=== PATIENT | female | born 1975 | race Caucasian/White ===

== ENCOUNTER 2021-12-25 18:55 | Emergency (ER) | payer OTHER, SELFPAY ==
[2021-12-25] VITALS (7 sets, daily range): BP systolic 159–189; BP diastolic 90–109; PULSE 83–115; RESP 16–24; TEMP 36.4; O2SAT 98–100
--- NOTE | ~2021-12-25 | XR_ITS ---
EXAMINATION: XR chest 1V portable Exam Date/Time: 12/25/2021 19:35 CDT HISTORY: chest pain, HX HTN, BLOOD SUGAR 498 IN TRIAGE Comparison: 11/22/13. RESULT: Lines, tubes, and devices: Cholecystectomy clips. Lungs and pleura: Clear. Cardiomediastinal silhouette: Stable. Other: No acute osseous or upper abdominal finding. IMPRESSION: No acute cardiopulmonary process. Reviewed, dictated and finalized at location K.
[2021-12-25 19:08] LABS: Glucose Point of Care 498 mg/dl (65-105)
--- NOTE | 2021-12-25 19:33 | ECG_ITS ---
Measurements Intervals [place] Rate: 104 P: 42 ME: 133 QRS: 32 QRSD: 77 T: 92 QT: 345 QTc: 455 Interpretive Statements SINUS TACHYCARDIA RSR' IN V1 OR V2, PROBABLY NORMAL VARIANT LEFT VENTRICULAR HYPERTROPHY WITH ST-T CHANGE BASELINE ARTIFACT- II, III, AVF, V3-V4 BORDERLINE ECG Electronically Signed On 12-25-2021 20:51:00 CDT by Mendel Ravi D.O.
[2021-12-25 19:34] LABS: Appearance Urine Clear (Clear); Bilirubin Urine Negative (Negative); Blood Urine Negative (Negative); Color Urine Yellow (Yellow); Glucose Urine UA 3+ mg/dL (Negative); Ketones Urine Negative (Negative); Leukocyte Esterase Ur Negative LEU/UL (Negative); Nitrate Urine Negative (Negative); Protein Urine Negative (Negative); Urobilinogen Urine 0.2 mg/dL (<2.0)
--- NOTE | 2021-12-25 19:37 | ED.RECABL ---
HPI - Recheck/Abnormal Lab/Rx General Chief Complaint: Recheck/Abnormal Lab/Rx Stated Complaint: elevated blood sugars non diabetic Time Seen by Provider: 12/25/21 19:25 Source: patient and RN notes reviewed Mode of arrival: ambulatory Limitations: no limitations History of Present Illness HPI narrative: This is a 46 year old female with history of hypertension who presents for evaluation of elevated blood sugar. Patient has been having increased urinary frequency so she went to an urgent care on Saturday for evaluation of possible UTI. Her urine was found to have glucose but no infection, so her blood sugar was checked. It was found to be 573 so she was told to get PCP. Patient does not have PCP and has not seen one for years. She reports 12 pound weight loss, intermittent headache, intermittent blurred vision for 6 months. She also reports constant left chest pressure, nonradiating for 2 days. She reports chronic cough from smoking but she denies shortness of breath. She reports nausea but denies vomiting or diarrhea. She has never been diagnosed for diabetes. she states lisinopril 40 mg daily for uncontrolled blood pressure. She gets her prescription from an online doctor. Related Data Allergies Allergy/AdvReac Type Severity Reaction Status Date / Time diphenhydramine Allergy Unknown Verified 11/21/13 22:31 Review of Systems Review of Systems: All systems reviewed & are unremarkable except as noted in HPI and below Constitutional: Constitutional: Denies chills and Reports fatigue Eyes: Eyes: Reports change in vision ENT: Denies nasal congestion and Denies sore throat Cardiovascular: Cardiovascular: Reports chest pain and Denies radiating jaw, neck or arm pain Respiratory: Respiratory: Denies chest congestion, Reports cough and Denies dyspnea Gastrointestinal: Gastrointestinal: Denies abdominal pain, Denies diarrhea, Reports nausea and Denies vomiting Musculoskeletal: Musculoskeletal: Denies back pain and Denies myalgias Neurologic: Reports headache(s) PMF Past Medical History Medical History (Updated 12/26/21 @ 00:00 by Ewa Gomez) Hypertension Surgical History Surgical History (Updated 12/25/21 @ 19:43 by Janette Blancas MD) H/O hernia repair History of cholecystectomy History of tonsillectomy Social History Social History (Updated 12/25/21 @ 19:43 by Janette Blancas MD) Smoking status: Current every day smoker Exam Narrative: GENERAL: Well-appearing, well-nourished, and in no acute distress. HEAD: Normocephalic, atraumatic EYES: PERRLA and EOMI, conjunctiva clear without discharge EARS: TM's clear bilaterally without erythema or dullness NOSE: Nares clear, no rhinorrhea or epistaxis THROAT:Mucous membranes moist, Oropharynx normal without erythema, exudate, peritonsillar swelling or fluctuance NECK: Supple, without lymphadenopathy or mass RESPIRATORY: No respiratory distress, Airway patent, Respirations non-labored, Clear to auscultation without rales, rhonchi or wheeze HEART: Regular rate and rhythm. No murmur heard. Normal peripheral pulses. ABDOMEN: Soft, nontender, nondistended, normal active bowel sounds. No masses. No rebound or guarding, No organomegaly. EXTREMITIES: No edema, normal strength with full range of motion. SKIN: Warm, dry, normal color without rash NEURO: Alert and oriented x3. CN 2-12 grossly intact. No focal deficits. PSYCH: Normal mood and affect. Course Reevaluation(s) Reevaluation #1: I Discussed with patient labs. I spoke with Dr. cruz who is litigation support analyst, and he states he can see patient tomorrow to establish care for her new onset dM and hypertension. Patient does not PCP. She does not have DKA. Date: 12/25/21 Time: 23:23 Vital Signs Vital signs: Vital Signs Temperature 97.5 F L 12/25/21 19:03 Pulse Rate 115 H 12/25/21 19:03 Respiratory Rate 16 12/25/21 19:03 Blood Pressure 189/90 H 12/25/21 19:03 Pulse Oximet
[2021-12-25 19:44] LABS: Basophils Percent Auto 0.3 % (0.2-1.2); Eosinophils Absolute Auto 0.1 K/mm3 (0-0.3); Eosinophils Percent Auto 1.3 % (0-4.4); Hemoglobin 14.3 g/dL (12.0-15.0); Immature Granulocyte Absolute 0.03 K/mm3 (0.00-0.031); Immature Granulocyte Percent A 0.3 % (0-0.5); Lymphocytes Absolute Auto 3.63 K/mm3 (0.9-3.2); Lymphocytes Percent Auto 42.2 % (18.3-44.2); Mean Corpuscular Hemoglobin 29.9 pg (26-34); Mean Corpuscular Volume 87.9 fl (80-100); Monocytes Absolute Auto 0.4 K/mm3 (0.1-0.6); Monocytes Percent Auto 4.9 % (2.6-8.5); Neutrophils Absolute Auto 4.4 K/mm3 (1.3-6.7); Platelet Count Result 261 k/mm3 (150-375); Red Blood Count 4.78 M/mm3 (4.2-5.4); Red Cell Distribution Width 13.1 % (11.5-14.5); White Blood Count 8.6 K/mm3 (4.5-10.0)
[2021-12-25 19:45] LABS: Mucus Urine Rare /lpf; RBC Urine 0-2 /hpf (0-2); Squamous Epithelial Cell Urine Few /hpf (Few); WBC Urine 0-3 /hpf
[2021-12-25 19:51] LABS: Base Excess ABG -0.4 mEq/l (+/-2.0); Carboxyhemoglobin 4.6 % THb (0-2.0); Fractional Inspired Oxygen 21 %; HCO3 ABG 22.8 mEq/l (22.0-26.0); Oxygen Content ABG 19.2 %vol (16.0-22.0); Oxygen Saturation ABG 97.6 % (95.0-100.0); Oxyhemoglobin 92.5 % THb (90.0-100.0); PCO2 ABG 33.5 mmHg (35.0-45.0); PO2 ABG 94.6 mmHg (80.0-100.0); Reduced Hemoglobin 2.9 %THb (0-5.0); Total Hemoglobin 14.7 g/dL (12.0-18.0); pH ABG 7.451 (7.350-7.450)
[2021-12-25 19:52] LABS: Device ROOM AIR; Modified Allen's Test Pass; Site Drawn RIGHT RADIAL
[2021-12-25 19:54] LABS: Add Urine Microscopic? YES
[2021-12-25] MEDS: SODIUM CHLORIDE 0.9% IV 1,000 ML 999 ML IV CONT (19:54)
[2021-12-25 19:56] LABS: Alanine Aminotransferase 19 U/L (6-35); Albumin Level 4.3 g/dL (3.5-5.1); Alkaline Phosphatase 121 U/L (38-126); Anion Gap 10 mmol/L (8-16); Aspartate Amino Transferase 21 U/L (14-36); Bilirubin,Total 0.3 mg/dL (0.2-1.3); Blood Urea Nitrogen 15 mg/dL (7-17); Carbon Dioxide 24 mmol/L (22-30); Chloride 102 mmol/L (98-107); Estimated CRCL calculation 95 ml/min; Estimated Glomerular Filt Rate > 60; Glucose 472 mg/dL (65-110); Magnesium 1.7 mg/dL (1.6-2.3); Phosphorus 3.5 mg/dL (2.5-4.5); Potassium 3.9 mmol/L (3.4-5.0); Sodium 136 mmol/L (137-145)
[2021-12-25 20:03] LABS: Beta-Hydroxybutyrate/Acetoacetate 0.17 mmol/L (0.02-0.27)
[2021-12-25 20:07] LABS: Troponin I 0.012 ng/mL (0.000-0.034)
[2021-12-25 20:22] LABS: Pregnancy On Board Control Positive; Urine Pregnancy Test Negative
[2021-12-25 20:24] LABS: Hemoglobin A1C 12.3 % (<5.7)
[2021-12-25] MEDS: INSULIN HUMAN REGULAR (*BKC) 100 UNITS/ML 8 UNITS SUB-Q (20:29)
[2021-12-25 20:33] LABS: Glucose Point of Care 379 mg/dl (65-105)
[2021-12-25] MEDS: LABETALOL HCL INJ 100 MG/20 ML VIAL 10 MG IV PUSH (21:49)
[2021-12-25 21:56] LABS: Glucose Point of Care 341 mg/dl (65-105)
[2021-12-25] MEDS: ONDANSETRON INJ 4 MG/2 ML VIAL IV PUSH (22:48)
[2021-12-25 23:22] LABS: Troponin I < 0.012 ng/mL (0.000-0.034)
== END 2021-12-25 23:42 | disposition home or self-care (01) ==
PROVIDERS: Emergency Medicine; Emergency Provider General Practice
DX: E11.65 Type 2 diabetes mellitus with hyperglycemia (principal); I10 Essential (primary) hypertension; F17.200 Nicotine dependence, unspecified, uncomplicated
CPT/HCPCS: 36415; 36600; 71045; 80053; 81001; 81025; 82010; 82375; 82805; 82948; 83036; 83050; 83735; 84100; 84484; 85025; 93005; 96361; 96374; 96375; 99284; J1815; J2405; J7030

== ENCOUNTER 2022-09-03 12:56 | Emergency (ER) | payer SELFPAY ==
[2022-09-03 14:06] VITALS: BP 187/104; PULSE 99; RESP 18; TEMP 36.8; O2SAT 99
--- NOTE | 2022-09-03 14:11 | ECG_ITS ---
Measurements Intervals [place] Rate: 91 P: 60 MD: 137 QRS: 46 QRSD: 86 T: 85 QT: 375 QTc: 462 Interpretive Statements SINUS RHYTHM POSSIBLE LEFT ATRIAL ENLARGEMENT [-0.1mV P WAVE IN V1/V2] POSSIBLE RIGHT VENTRICULAR CONDUCTION DELAY [RSR (QR) IN V1/V2] NONSPECIFIC ST & T-WAVE ABNORMALITY COMPARED TO ECG 12/25/2021 19:50:10 SINUS RHYTHM NOW PRESENT Electronically Signed On 09-04-2022 14:58:39 CDT by Miguel Garcia M.D.
[2022-09-03 14:21] LABS: Glucose Point of Care 409 mg/dl (65-105)
[2022-09-03 14:31] LABS: Basophils Percent Auto 0.5 % (0.2-1.2); Eosinophils Absolute Auto 0.1 K/mm3 (0-0.3); Eosinophils Percent Auto 1.3 % (0-4.4); Hematocrit 42.7 % (37.0-47.0); Hemoglobin 14.6 g/dL (12.0-15.0); Immature Granulocyte Absolute 0.02 K/mm3 (0.00-0.031); Immature Granulocyte Percent A 0.3 % (0-0.5); Lymphocytes Absolute Auto 2.99 K/mm3 (0.9-3.2); Lymphocytes Percent Auto 37.8 % (18.3-44.2); Mean Corpuscular HGB Conc 34.2 g/dl (32-36); Mean Corpuscular Hemoglobin 29.3 pg (26-34); Mean Corpuscular Volume 85.6 fl (80-100); Mean Platelet Volume 9.7 fl (7.4-10.4); Monocytes Absolute Auto 0.4 K/mm3 (0.1-0.6); Monocytes Percent Auto 4.9 % (2.6-8.5); Neutrophils Absolute Auto 4.4 K/mm3 (1.3-6.7); Neutrophils Percent Auto 55.2 % (45.5-73.1); Platelet Count Result 270 k/mm3 (150-375); Red Blood Count 4.99 M/mm3 (4.2-5.4); Red Cell Distribution Width 13.1 % (11.5-14.5); White Blood Count 7.9 K/mm3 (4.5-10.0)
[2022-09-03 14:44] LABS: Alanine Aminotransferase 23 U/L (6-35); Alkaline Phosphatase 133 U/L (38-126); Anion Gap 11 mmol/L (8-16); Aspartate Amino Transferase 20 U/L (14-36); Bilirubin,Total 0.5 mg/dL (0.2-1.3); Blood Urea Nitrogen 9 mg/dL (7-17); Calcium 8.7 mg/dL (8.4-10.2); Carbon Dioxide 23 mmol/L (22-30); Chloride 99 mmol/L (98-107); Estimated CRCL calculation 92 ml/min; Estimated Glomerular Filt Rate > 60; Glucose 382 mg/dL (65-110); Magnesium 1.8 mg/dL (1.6-2.3); Phosphorus 3.7 mg/dL (2.5-4.5); Potassium 3.6 mmol/L (3.4-5.0); Sodium 133 mmol/L (137-145)
[2022-09-03 14:48] LABS: Beta-Hydroxybutyrate/Acetoacetate 0.14 mmol/L (0.02-0.27)
--- NOTE | 2022-09-03 15:44 | PC.NURSE ---
Patient states she does not wish to be seen anymore and is tired of waiting. Patient advised to return to ED if symptoms continue or worsen. Patient ambulated out of ED with no difficulty and with all belongings.
== END 2022-09-03 15:44 | disposition left against medical advice (07) ==
PROVIDERS: Emergency Provider Emergency Medicine
DX: R53.1 Weakness (principal)
CPT/HCPCS: 36415; 80053; 82010; 82948; 83735; 84100; 85025; 93005; 99199

== ENCOUNTER 2023-04-10 12:38 | Emergency (ER) | payer OTHER, SELFPAY ==
--- NOTE | ~2023-04-10 | XR_ITS ---
EXAMINATION: XR knee LT min 4V DATE: 04/10/2023 14:34 INDICATION: Left knee pain TECHNIQUE: Four views of the left knee were obtained. COMPARISON: None. FINDINGS: Alignment is normal. No fracture or osteochondral lesion. Joint spaces are normal with no e rosions. No joint effusion/synovitis. Soft tissues are unremarkable. IMPRESSION: 1. No acute osseous abnormality. Reviewed, dictated and finalized at location B. [employer]
[2023-04-10 12:44] VITALS: BP 147/80; PULSE 100; RESP 16; TEMP 36.8; O2SAT 100
--- NOTE | 2023-04-10 14:40 | ED.LOWEXIN ---
HPI - Extremity Injury (Lower) General Chief Complaint: Extremity Injury, Lower Stated Complaint: fall/left knee pain Time Seen by Provider: 04/10/23 13:48 History of Present Illness HPI Narrative: Patient is a 47-year-old female who presents ER with pain in the left knee. She was moving some items while using her rollator when she had a fall 2 days ago. She struck her left knee and right knee on the ground has had persistent pain in the left knee. She has an abrasion in the area. No new numbness or tingling. Patient has poor mobility due to previous CVA. Related Data Allergies Allergy/AdvReac Type Severity Reaction Status Date / Time diphenhydramine Allergy Unknown Hives Verified 04/10/23 13:56 Review of Systems Musculoskeletal: Musculoskeletal: Denies back pain, Reports arthralgias and Denies joint swelling Integumentary/Breasts: Skin/Breast: Denies rash and Denies skin ulcer Comments: Left knee abrasion Neurologic: Denies syncope, Denies numbness and Denies weakness PMFSH Past Medical History Medical History (Updated 04/10/23 @ 14:45 by Bernardo Cam MD) CVA (cerebral vascular accident) Diabetes Hypertension Surgical History Surgical History (Updated 12/25/21 @ 19:43 by Janette Blancas MD) H/O hernia repair History of cholecystectomy History of tonsillectomy Social History Social History (Updated 12/25/21 @ 19:43 by Janette Blancas MD) Smoking status: Current every day smoker Exam Narrative: GENERAL: Well-appearing, well-nourished, and in no acute distress. HEAD: Normocephalic, atraumatic. EXTREMITIES: Left knee with abrasion over patella with mild tenderness there and at the joint line. Questionable effusion. Range of motion preserved in the knee. 1+ lower extremity edema. SKIN: Warm, dry, no rash. NEURO: Alert and oriented x3. PSYCH: Normal mood and affect. Course Course Emergency Course: Patient resting comfortably. Informed results. [place] appropriate for discharge home. May continue taking ibuprofen for pain. Vital Signs Vital signs: Vital Signs Temperature 98.2 F 04/10/23 12:44 Pulse Rate 100 04/10/23 12:44 Respiratory Rate 16 04/10/23 12:44 Blood Pressure 147/80 H 04/10/23 12:44 Pulse Oximetry 100 04/10/23 12:44 Oxygen Delivery Room Air 04/10/23 12:44 Temperature 98.2 F 04/10/23 12:44 Pulse Rate 100 04/10/23 12:44 Respiratory Rate 16 04/10/23 12:44 Blood Pressure 147/80 H 04/10/23 12:44 Pulse Oximetry 100 04/10/23 12:44 Oxygen Delivery Room Air 04/10/23 12:44 MDM - Extremity Injury (Lower) Imaging Data Radiologist's impression: ITS Impressions Knee X-Ray 04/10/23 14:36 IMPRESSION: 1. No acute osseous abnormality. Discharge Plan Discharge Clinical Impression: Abrasion of knee, Knee pain Patient Disposition: Home, Self-Care Condition: Stable Instructions: Antibiotic Form, Abrasion (ED), Knee Pain (ED), P.R.I.C.E. Treatment (ED) Additional Instructions: Return the ER if you have fever over 100.4 ?F, you cannot keep down food or water, you suffer new injury, you have additional concerns. Prescriptions: No Action metformin 500 mg tablet 500 mg PO BID Qty: 30 0RF Follow-up/Referrals: UNKNOWN,DOCTOR [Primary Care Provider] - 1 Week
== END 2023-04-10 15:03 | disposition home or self-care (01) ==
PROVIDERS: Emergency Provider Emergency Medicine
DX: S80.212A Abrasion, left knee, initial encounter (principal); I10 Essential (primary) hypertension; E11.9 Type 2 diabetes mellitus without complications; I69.998 Other sequelae following unspecified cerebrovascular disease; R26.9 Unspecified abnormalities of gait and mobility; F17.200 Nicotine dependence, unspecified, uncomplicated; Z90.49 Acquired absence of other specified parts of digestive tract; Z79.84 Long term (current) use of oral hypoglycemic drugs; W19.XXXA Unspecified fall, initial encounter
CPT/HCPCS: 73564; 99283

== ENCOUNTER 2023-12-26 10:22 | Emergency (ER) | payer MEDICAID, SELFPAY ==
--- NOTE | ~2023-12-26 | XR_ITS ---
XR hip RT min 2V Ordering provider: Sanjeev Bright MD History: . FALL, RIGHT HIP PAIN . Comparison: None. FINDINGS: BONES: No acute fracture or dislocation. HIP JOINT SPACES: Normal. SACROILIAC JOINT SPACES/LUMBAR SPINE: The sacroiliac joint spaces are normal. Mild degenerative quinn es of the visualized lower lumbar spine. PUBIC SYMPHYSIS: Normal. SOFT TISSUES: Normal. IMPRESSION: No acute osseous abnormality pelvis and right hip. Reviewed, dictated and finalized at location A.
--- NOTE | ~2023-12-26 | XR_ITS ---
XR shoulder RT min 2V 12/26/2023 11:33 Indication: Right shoulder pain after fall Procedure: 4 views right shoulder Comparison: No prior studies for comparison. Findings: There is a nondisplaced fracture of the right greater tuberosity. No other fracture. No sig nificant soft tissue abnormality. Acromioclavicular joint intact. Impression: 1: Nondisplaced fracture of the greater tuberosity of the humerus. Reviewed, dictated and finalized at location B. Impression: 1: Nondisplaced fracture of the greater tuberosity of the humerus.
[2023-12-26 10:23] VITALS: BP 151/90; PULSE 106; RESP 16; TEMP 36.9; O2SAT 96
--- NOTE | 2023-12-26 11:19 | ED.UPPEXIN ---
HPI - Extremity Injury (Upper) General Chief Complaint: Extremity Injury, Upper Stated Complaint: fell yesterday-right shoulder pain Time Seen by Provider: 12/26/23 10:58 History of Present Illness HPI narrative: This is a 48-year-old female who presents to the ED for chief complaint of a fall yesterday. Patient reports getting stumbled up with [place] walk[place] States that she fell onto her right side and injured the right lateral hip and right shoulder. Denies head injury or LOC. Denies any further sites of pain or injury. Denies numbness, weakness. Related Data Allergies Allergy/AdvReac Type Severity Reaction Status Date / Time diphenhydramine Allergy Unknown Hives Verified 12/26/23 10:23 bacitracin AdvReac Hives Verified 12/26/23 10:23 [From Neosporin ([id number])] neomycin AdvReac Hives Verified 12/26/23 10:23 [From Neosporin ([id number])] polymyxin B AdvReac Hives Verified 12/26/23 10:23 [From Neosporin ([id number])] Review of Systems Review of Systems: All systems as dictated in [facility]PI [facility] Past Medical History Medical History (Updated 12/26/23 @ 12:03 by Kalpesh Guerin PA-C) CVA (cerebral vascular accident) Diabetes Hypertension Surgical History Surgical History (Updated 12/25/21 @ 19:43 by Janette Blancas MD) H/O hernia repair History of cholecystectomy History of tonsillectomy Social History Social History (Updated 12/25/21 @ 19:43 by Janette Blancas MD) Smoking status: Current every day smoker Exam Narrative: GENERAL: Well-appearing, well-nourished, and in no acute distress. HEAD: Normocephalic, atraumatic. EYES: PERRLA and EOMI. ENT: Nares clear, no rhinorrhea or epistaxis. Mucous membranes moist. Oropharynx without tonsillar hypertrophy exudate or other lesions. NECK: Supple. No adenopathy or masses. CHEST: No respiratory distress. Clear to auscultation. No wheezes rales or rhonchi HEART: Regular rate and rhythm. No murmur heard. Normal peripheral pulses. ABDOMEN: Soft, nontender, nondistended, normal active bowel sounds. MSK: RUE: Significant difficulty with range of motion of the right shoulder. Tender to palpation on the lateral right shoulder. no deformity. Neurovascularly intact distally LUE: benign RLE: Who tenderness to the lateral right hip. Ambulatory. Neurovascularly intact distally. No bruising. No deformity LLE: Benign SKIN: Warm, dry, no rash. NEURO: Alert and oriented x4. No focal deficits. PSYCH: Normal mood and affect. Course Vital Signs Vital signs: Vital Signs Temperature 98.5 F 12/26/23 10:23 Pulse Rate 106 H 12/26/23 10:23 Respiratory Rate 16 12/26/23 10:23 Blood Pressure 151/90 H 12/26/23 10:23 Pulse Oximetry 96 12/26/23 10:23 Oxygen Delivery Room Air 12/26/23 10:23 Temperature 98.5 F 12/26/23 10:23 Pulse Rate 106 H 12/26/23 10:23 Respiratory Rate 16 12/26/23 10:23 Blood Pressure 151/90 H 12/26/23 10:23 Pulse Oximetry 96 12/26/23 10:23 Oxygen Delivery Room Air 12/26/23 10:23 MDM - Extremity Injury (Upper) MDM Narrative Medical decision making narrative: This is a 48-year-old female who presents to the ED chief complaint of right shoulder pain and right hip pain following a fall yesterday. Vitals are normal. Exam shows difficulty with range of motion of the right shoulder. Hip exam is relatively benign. Right shoulder XR: Impression: 1: Nondisplaced fracture of the greater tuberosity of the humerus.. right hip x-ray: IMPRESSION: No acute osseous abnormality pelvis and right hip.. Symptoms and presentation consistent with proximal humerus fracture. She will be placed in sling for immobilization and comfort. Rx for [place] given for breakthrough pain. She has an orthopedic doctor that she would like to follow-up with. Pt will be discharged in stable condition. Return precautions given and tovar
[2023-12-26] MEDS: ACETAMINOPHEN 325 MG TABLET 650 MG PO (12:15)
== END 2023-12-26 12:25 | disposition home or self-care (01) ==
PROVIDERS: Emergency Provider Physician Assistant
DX: S42.254A Nondisplaced fracture of greater tuberosity of right humerus, initial encounter for closed fracture (principal); I10 Essential (primary) hypertension; E11.9 Type 2 diabetes mellitus without complications; F17.200 Nicotine dependence, unspecified, uncomplicated; Z86.73 Personal history of transient ischemic attack (TIA), and cerebral infarction without residual deficits; W19.XXXA Unspecified fall, initial encounter; Y92.834 Zoological garden (Zoo) as the place of occurrence of the external cause
CPT/HCPCS: 73030; 73502; 99284; A4565; A9270

== ENCOUNTER 2024-05-06 16:14 | Outpatient (CLI) | payer OTHER, SELFPAY ==
--- NOTE | ~2024-05-06 | MR_ITS ---
MRI of the right shoulder Technique: Axial proton-density fat-sat images, coronal proton density fat-sat and T2 fat-sat images, and sagittal T1-weighted and T2 fat-sat images were acquired. Clinical History: Pain Findings: There is mild to moderate degenerative change at the AC joint. Coracoclavicular, coracoacro mial, and coracohumeral ligaments are grossly intact. There is moderate supraspinatus and infraspinatus tendinosis, without definite partial or full-thickn ess tear. Subscapularis tendon is intact with mild tendinosis. Tendon of the long head of the biceps is intact. There is probable degenerative superior labral tearing, extending to the anterosuperior portion. There is a large nondisplaced fracture of the greater tuberosity, as seen on prior radiographs. There is thickening and increased signal of the inferior glenohumeral ligament. There is chondral chondrom alacia of the humeral head. No significant glenohumeral joint effusion. Minimal fluid present in the subacromial/subdeltoid bursa. No muscle atrophy or edema. Impression: Large nondisplaced fracture the greater tuberosity, which corresponds with findings on prior radiogra phs. Degenerative superior labral tearing extending to the anterosuperior portion. Thickening and increased signal of the inferior glenohumeral ligament. This could reflect adhesive ca psulitis, versus possibly posttraumatic sprain. Reviewed, dictated and finalized at [facility]. [employer] Impression: Large nondisplaced fracture the greater tuberosity, which corresponds with find ings on prior radiographs. Degenerative superior labral tearing extending to the anterosuperior portion. Thickening and increased signal of the inferior glenohumeral ligament. This cou ld reflect adhesive capsulitis, versus possibly posttraumatic sprain.
== END 2024-05-06 16:15 | disposition home or self-care (01) ==
PROVIDERS: PCP Internal Medicine; Visit Provider Orthopaedic Surgery
DX: S43.431A Superior glenoid labrum lesion of right shoulder, initial encounter (principal); X58.XXXA Exposure to other specified factors, initial encounter
CPT/HCPCS: 73221